=== PATIENT | female | born 1935 | race Caucasian/White ===

== ENCOUNTER → 2017-08-25 10:48 | Outpatient (CLI) | payer OTHER, SELFPAY ==
[2017-08-25 11:52] LABS: Blood Urea Nitrogen 20 mg/dL (7-17); Estimated Glomerular Filt Rate 53.2 mL/min (>60)
== END ==
PROVIDERS: PCP Family Medicine; Visit Provider Family Medicine
DX: Z01.812 Encounter for preprocedural laboratory examination (principal)
CPT/HCPCS: 36415; 82565; 84520

== ENCOUNTER → 2017-08-30 10:56 | Outpatient (CLI) | payer OTHER, SELFPAY ==
--- NOTE | 2017-08-30 11:22 | DI.CT.S_ITS ---
PROCEDURE: CT ABDOMEN PELVIS W CON INDICATIONS: Right paraspinal muscle mass 3x4cm. TECHNIQUE: After the administration of oral and intravenous contrast, 5 mm thick sections acquired from the diaphragms to the symphysis. 5 mm thick coronal and sagittal reformats were performed. For radiation dose reduction, the following was used: automated exposure control, adjustment of mA and/or kV according to patient size. COMPARISON: [facility], CT, CT IVP, 02/18/2017, 15:42. FINDINGS: Image quality: Excellent. ABDOMEN: Lung bases: The right paraspinous mass at T11 is increased in size, currently measuring 45 mm diameter. Lung bases are otherwise clear. Heart size is normal. Solid organs: No change in small lateral segment left hepatic lobe cyst. Liver is otherwise normal in size and enhancement. Gallbladder is within normal limits. Biliary system is non-dilated. Pancreas enhances normally. Spleen is normal in size and enhancement. No adrenal nodules. Kidneys are normal in size and enhancement, without hydronephrosis. Peritoneum and bowel: Stomach, small bowel, and colon loops are normal in caliber and wall thickness. No free fluid or air. Nodes and vessels: No retroperitoneal or mesenteric adenopathy. Aorta is within normal limits. Duplicated infrarenal IVC is present. Miscellaneous: No ventral hernias. PELVIS: Genitourinary: Previously seen left posterior urinary bladder wall thickening is no longer seen. Miscellaneous: No inguinal hernias or adenopathy. Bones: No suspicious bony lesions. 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 No vertebral body compression fractures. IMPRESSION: 1. Resolved left posterior urinary bladder wall thickening, and resolved left ureteral obstruction. 2. Increased right T10 paraspinous mass, consistent with metastatic disease. Dictated by: Viraj Davidson M.D. on 08/30/2017 at 16:34 Approved by: Viraj Davidson M.D. on 08/30/2017 at 16:38
== END ==
PROVIDERS: Family Provider Family Medicine; PCP Family Medicine; Visit Provider Family Medicine
DX: R93.5 Abnormal findings on diagnostic imaging of other abdominal regions, including retroperitoneum (principal); R22.2 Localized swelling, mass and lump, trunk
CPT/HCPCS: 74177; Q9967

== ENCOUNTER → 2017-09-29 12:36 | Outpatient (CLI) | payer OTHER, SELFPAY ==
[2017-09-29 13:12] LABS: Platelet Count 198 X10^3/uL (150-400)
[2017-09-29 13:32] LABS: INR 1.3 (0.9-1.3); Prothrombin Time 13.7 SECONDS (10.1-12.7)
== END ==
PROVIDERS: Family Provider Family Medicine; PCP Family Medicine; Visit Provider Family Medicine
DX: Z79.01 Long term (current) use of anticoagulants (principal)
CPT/HCPCS: 36415; 85049; 85610

== ENCOUNTER 2017-09-30 09:07 | Day surgery (SDC) | payer OTHER, SELFPAY ==
[2017-09-30] VITALS (14 sets, daily range): BP systolic 124–156; BP diastolic 57–74; PULSE 58–66; RESP 14–16; TEMP 36–36.6; O2SAT 96–100; BMI 25.8
--- NOTE | 2017-09-30 | PATH_ITS ---
[facility] Accession Number: [id number] . 01 Material submitted: . RIGHT PARASPINOUS MASS . 01 Clinical history: . A: NEEDLE BX CORE . 02 Diagnosis: Needle Core Biopsy, Right Paraspinous Mass: Benign neural tumor consistent with neurofibroma, see microscopic description). . . . COMMENT: Case reviewed by Dr. Ginette Pop, who agrees with the diagnosis. Results of this evaluation are telephoned to Dr. Mariano Nance at 0835 on 10/11/2017. MRV/10/11/2017 . 02 Electronically signed: . Chandan Wilkes MD, Pathologist NPI- [id number] . 01 Gross description: . Received in one formalin-filled container labeled with the patient's name and designated right paraspinous mass needle core BX, are four 0.1 cm, cylindrical-shaped portions of tissue which range in length from 0.4 cm to 1.4 cm. The specimen is entirely submitted in one cassette. ([id number]) /FRR . 02 Microscopic: . Sections are of a needle core biopsy stated to be from a right paraspinous mass. The tissue cores are involved by a spindle cell tumor which morphologically appears benign. The pattern of spindle cell growth is suggestive of neural origin; however, in order to better identify the cell type here, immunohistochemistry is performed. . IMMUNOHISTOCHEMISTRY RESULTS: S100: Tumor cells strongly positive. Smooth muscle actin: Tumor cells negative. Desmin: Tumor cells negative. RAJINDER (pankeratin): Tumor cells negative. . INTERPRETATION: This immunophenotype confirms the light microscopic impression that this lesion is of neural origin. The lesion appears benign with the spindle cells showing no pleomorphism. There are no mitotic figures. There is no evidence of necrosis. The morphology is felt to be consistent with neurofibroma; however, it is recognized that limited tissue is available for review. . . Technical Component of IHC was performed by [facility], [facility], [address] [place] [address] [address], [place] [address], . CLIA # [id number], medical practitioners Alex Fu MD . 02 Pathologist provided ICD-10: D36.17 . 02 CPT . 118029, I29060, I19907 Performed at: 01 [facility] [address] [place] [address] [address], [place] [id number] MD Yunior Vu MD Phone: [phone] Performed at: 02 [facility] [address] [place] [id number] MD Ashvin Nagy MD Phone: [phone]
--- NOTE | 2017-09-30 | DI.RAD.S_ITS ---
PROCEDURE: XR CHEST 2V INDICATIONS: post lung biopsy TECHNIQUE: 2 views of the chest were acquired. COMPARISON: [facility], CR, XR CHEST 2 VIEWS, 03/13/2017, 8:11. FINDINGS: Surgical changes and devices: None. Lungs and pleura: No pleural effusions or pneumothorax. Lungs are clear. Mediastinum: Mass lesion at the right paraspinous region just below the diaphragm is identified. Heart size is normal. Bones and chest wall: No suspicious bony abnormalities. Soft tissues appear unremarkable. IMPRESSION: 1. No pneumothorax post biopsy of the right lower paraspinous mass lesion. No other acute abnormality. Note: Findings were called to recovery and patient is released to home pending histopathology results. Dictated by: Rj Blevins M.D. on 09/30/2017 at 14:01 Approved by: Rj Blevins M.D. on 09/30/2017 at 14:04
[2017-09-30] MEDS: fentaNYL 100 MCG/2 ML INJ IV (10:45)
--- NOTE | 2017-09-30 10:58 | DI.CT.S_ITS ---
PROCEDURE: CT BIOPSY LUNG RT Sedation analgesia for 30 minutes. INDICATIONS: RIGHT PARASPINOUS MASS TECHNIQUE: The indications, alternatives, benefits, risks, and possible complications of the procedure were communicated to the patient. Informed written consent from the patient was obtained and placed in the chart. Continuous EKG and hemodynamic monitoring was started by trained personnel. The patient was brought to the CT suite and chair lift operator spiral CT imaging was performed with localization grid. The appropriate site for percutaneous access to the biopsy target was marked, was prepped and draped sterilely, and was infused with local anaesthesia. Under CT guidance, a core biopsy trocar and needle set was advanced to the biopsy target, and specimen(s) were obtained. The trocar and needle were then removed, and the patient was sent for post-procedure monitoring. COMPARISON: [facility], CT, CT ABDOMEN PELVIS WITHOUT CONTRAST, 02/17/2017, 17:54. [facility], CT, CT ABDOMEN PELVIS W CON, 08/30/2017, 12:21. FINDINGS: A complete noncontrast CT chest was performed prior to the biopsy procedure. The mass lesion in the right paraspinous recess is identified at the T11 level. The lung is otherwise clear except for mild groundglass appearance in the lingula, series 3/image 23, likely atelectasis but indeterminate. No evidence of metastatic nodules. No mediastinal or hilar adenopathy by size criteria. No axillary or supraclavicular adenopathy. Thyroid gland appears normal. Heart size is normal, coronary artery calcifications present. The thoracic aorta and pulmonary arteries appear normal in size. No hiatal hernia. Biopsy site: Right T11 paraspinous mass Needle: 20 gauge biopsy needle with introducer trocar. Number of passes: 3; free flowing blood returned through the needle after the first biopsy. Medications: 1% lidocaine for local anaesthesia. 50 mcg IV Fentanyl and 1 mg Versed for conscious sedation for 30 minutes (see nursing record). Complications: None. Post biopsy CT scan revealed no evidence of pneumothorax. A 2 hour one view chest x-ray is pending. IMPRESSION: Successful CT-guided biopsy of right paraspinous mass at the T11 level. Dictated by: Rj Blevins M.D. on 09/30/2017 at 14:28 Approved by: Rj Blevins M.D. on 09/30/2017 at 14:37
--- NOTE | 2017-09-30 11:32 | SUR.PHASEII ---
Lung Biopsy site to back is dry and intact. No drainage noted. Pt pleasant and cooperative and denies any complaints.
--- NOTE | 2017-09-30 11:46 | SUR.PHASEII ---
Dressing dry and intact. Report given to Brenda MCMULLEN .
--- NOTE | 2017-09-30 12:04 | SUR.PHASEII ---
pt resting quietly, dressing is dry and intact, pt tolerating po juice and crackers, visiting with family member at bedside, denies any pain or discomfort.
--- NOTE | 2017-09-30 12:29 | SUR.PHASEII ---
dressing to back from lung biopsy dry and intact .
--- NOTE | 2017-09-30 14:02 | SUR.PHASEII ---
xray complete, BACK DRESSING REMAINS DRY AND INTACT WITH NO REDNESS OR SWELLING AT SITE. PT DENIES ANY PAIN OR DISCOMFORT.
[2017-09-30] MEDS: MIDAZOLAM 2 MG/2 ML VIAL IV (17:47)
== END 2017-09-30 14:13 ==
PROVIDERS: Family Provider Family Medicine; PCP Family Medicine; Visit Provider Family Medicine
PROC: BB24ZZZ Computerized Tomography (CT Scan) of Bilateral Lungs (ICD-10-PCS; CPT 32408; principal; 2017-09-30 10:30)
DX: D36.17 Benign neoplasm of peripheral nerves and autonomic nervous system of trunk, unspecified (principal); E11.9 Type 2 diabetes mellitus without complications; I48.91 Unspecified atrial fibrillation; I10 Essential (primary) hypertension
CPT/HCPCS: 32405; 71046; 77012; J2250; J3010

== ENCOUNTER → 2018-08-23 12:36 | Outpatient (CLI) | payer OTHER, SELFPAY ==
[2018-08-23 13:32] LABS: Add Manual Diff / Slide Review NO; Basophils Absolute Auto 0 /uL (0-100); Basophils Percent Auto 0.5 % (0-2); Eosinophils Absolute Auto 100 /uL (0-450); Eosinophils Percent Auto 1.4 % (2-4); Hematocrit 36.1 % (36-46); Hemoglobin 12.4 g/dL (12.0-16.0); Lymphocytes Absolute Auto 1300 /uL (1100-4500); Lymphocytes Percent Auto 15.6 % (25-40); Mean Corpuscular HGB Conc 34.5 % (30-36); Mean Corpuscular Hemoglobin 29.5 PG (26-34); Mean Corpuscular Volume 85.4 fL (80-100); Monocytes Absolute Auto 400 /uL (0-900); Monocytes Percent Auto 4.4 % (3-14); Neutrophils Absolute Auto 6500 /uL (1500-7000); Neutrophils Percent Auto 78.1 % (50-75); Platelet Count 189 X10^3/uL (150-400); Red Blood Cell Count 4.22 X10^6/uL (4.0-5.2); Red Cell Distribution Width 13.7 % (11.6-14.8); White Blood Cell Count 8.4 X10^3/uL (4.5-11.0)
[2018-08-23 14:21] LABS: Thyroid Stimulating Hormone 2.38 uIU/mL (0.47-4.68)
[2018-08-23 14:32] LABS: Alanine Aminotransferase 18 IU/L (9-52); Albumin 3.9 g/dL (3.5-5.0); Albumin Globulin Ratio 1.6 (1.0-2.8); Alkaline Phosphatase 68 U/L (38-126); Aspartate Aminotransferase 17 IU/L (14-36); BUN Creatinine Ratio 22.2 (6-22); Bilirubin Total 0.6 mg/dL (0.2-1.3); Blood Urea Nitrogen 20 mg/dL (7-17); Carbon Dioxide 29 mmol/L (22-32); Chloride 102 mmol/L (98-107); Cholesterol 144 mg/dL (140-199); Estimated Glomerular Filt Rate 59.9 mL/min (>60); Globulin 2.5 g/dL (1.7-4.1); Glucose 127 mg/dL (80-110); HDL Cholesterol 45 mg/dL (40-60); HEMOLYSIS < 15 (0-50); LDL Cholesterol Calculated 64 mg/dL (<100); Sodium 139 mmol/L (137-145); Total Protein 6.4 g/dL (6.3-8.2); Triglycerides 177 mg/dL (35-150)
== END ==
PROVIDERS: PCP Family Medicine; Visit Provider Family Medicine
DX: E03.9 Hypothyroidism, unspecified (principal); E11.9 Type 2 diabetes mellitus without complications; E78.5 Hyperlipidemia, unspecified; I10 Essential (primary) hypertension
CPT/HCPCS: 36415; 80053; 80061; 84443; 85025